=== PATIENT | male | born 1970 | race Caucasian/White ===

== ENCOUNTER → 2016-09-01 | Outpatient (CLI) | payer OTHER ==
[~2016-09-01] MED LIST: ALCO1PAD; APIDINJ SQ; ASPI-110 PO; AZIT250T3 PO; BECL0.07 INH; BEVA100P; CHLO25TA2 PO; GLUC1TES75; LANC30MI; LANTUS2P SQ; LOSA100T PO; OMEP40CA2 PO; PRAV40TA PO; TRUE METRIX BLO1 KIT; VENTAER INH
--- NOTE | 2016-09-04 08:38 | RSPPFT ---
DATE OF PROCEDURE: 09/01/16 COMMENTS: Spirometry shows FVC of 4.0 at 86% of predicted, FEV1 of 3.1 at 89%, FEV1/FVC ratio is normal. Flow is decreased at FEF 50, FEF 75 and FEF 25-75. There is no response after bronchodilator treatment. Lung volumes show residual volume is normal. TLC is normal. Diffusion capacity is normal. Flow volume loop indicates a normal pattern. IMPRESSION: 1. Normal spirometry. 2. No response after bronchodilator treatment. 3. Normal lung volumes. 4. Normal diffusion capacity.
== END ==
LOC: HRSP 13:09
PROVIDERS: ATTEND Specialist
DX: J44.1 Chronic obstructive pulmonary disease with (acute) exacerbation (principal)
CPT/HCPCS: 94060; 94726; 94729